=== PATIENT | female | born 1980 | race Caucasian/White ===

== ENCOUNTER 2016-04-29 07:36 | Day surgery (SDC) | payer MEDICARE, MEDICAID ==
[~2016-04-29] VITALS: Ht 165.1 cm; Wt 120.2 kg
[~2016-04-29 07:36] MED LIST: 0.9% Sodium Chloride 1,000 ML IV SCH; ESOM40CA41 PO; MEDR150D9 IM; Sodium Chloride LOK Flush 10 mL Syringe IV PRN; fentaNYL-PF 50 mCg/mL 2 mL Inj IVPUSH PRN
[2016-04-29 07:58] VITALS: BP 133/96; PULSE 82; RESP 16; O2SAT 96
[2016-04-29 08:43] VITALS: BP 146/86; PULSE 72; RESP 12; O2SAT 94
[2016-04-29 08:51] VITALS: BP 144/87; PULSE 73; RESP 16; O2SAT 95
[2016-04-29 09:01] VITALS: BP 146/90; PULSE 74; RESP 16; O2SAT 96
--- NOTE | 2016-04-29 09:08 | ENDO ---
[address] [address] ENDOSCOPY PROCEDURE PATIENT: LILY NUNES : 1980 MR#: [id number] ADMIT: 04/29/2016 JOB ID: [id number] DATE: 04/29/2016 PROCEDURE: Esophagogastroduodenoscopy. INDICATION: Gastroesophageal reflux. The patient's ASA classification is 2. Mallampati score is 2. MEDICATIONS: 1. Versed 5 mg. 2. Fentanyl 100 mcg. INSTRUMENT USED: GIF H 190 J. PROCEDURE DETAILS: After informed consent was obtained, the patient was brought into the GI suite, where she was placed on oxygen via nasal cannula and monitored with continuous pulse oximeter, telemetry and blood pressure monitoring. A time-out was performed. Then, she was placed in the left lateral decubitus position. A bite block was placed. Medications were then administered for sedation. The standard EGD scope was inserted through the bite block and advanced under direct visualization to the second portion of the duodenum without difficulty. FINDINGS: 1. Normal appearing duodenal bulb, first and second portion. 2. Normal appearing pylorus. In the antrum and body of the stomach, there was moderate erythema suggestive of gastritis. Multiple random biopsies were obtained. 3. Retroflexed views in the gastric body revealed a normal appearing cardia and fundus. No hiatal hernia was appreciated. 4. The GE junction was at approximately 39 cm and was slightly irregular. There were two short tongues of salmon-colored mucosa arising from the GE junction. Multiple biopsies were obtained. The remainder of the esophagus was otherwise unremarkable. IMPRESSION: 1. Gastritis. 2. Slightly irregular gastroesophageal junction. RECOMMENDATIONS: 1. Await biopsy results. 2. Continue PPI daily. 3. Smoking cessation. 4. Weight loss encouraged. 5. Follow up in GI clinic. COMPLICATIONS: None. ESTIMATED BLOOD LOSS: Less than 5 mL.
[2016-04-29 09:15] VITALS: BP 147/95; PULSE 76; RESP 17; O2SAT 96
--- NOTE | 2016-04-30 15:25 | PATH ---
SURGICAL PATHOLOGY Attending Physician:Mary Ellen Churchill CASE STATUS: Signed Out PATIENT NAME: LILY NUNES PID: [id number] : 1980 DATE COLLECTED:04/29/2016 19:05 SPECIMEN: 1: Gastric, Biopsy 2: Esophagus, Biopsy CLINICAL HISTORY: 1: RANDOM GASTRIC BIOPSY 2: DISTAL ESOPHAGEAL BIOPSY FINAL DIAGNOSIS: 1. Random Gastric Biopsy: Gastric body and antral mucosa with no diagnostic alterations. Negative for Helicobacter organisms. Negative for intestinal metaplasia. Negative for dysplasia and malignancy. 2. Distal Esophagus, Biopsy: Squamocolumnar mucosa with reactive changes consistent with reflux. Negative for intestinal metaplasia. Negative for dysplasia and malignancy. ICD10 K21.0 GROSS DESCRIPTION: The specimen is received in two formalin filled containers labeled with the patient's name. 1). The specimen is sublabeled "random gastric" and consists of multiple portions of tissue which aggregate to 0.7 x 0.5 x 0.3 CM. The specimen is entirely submitted in cassette 1A. 2). The specimen is sublabeled "distal esophageal" and consists of 4 portions of tissue which aggregate to 0.3 x 0.3 x 0.2 CM. The specimen is entirely submitted in cassette 2A. 04/29/2016 [facility] MICRO DESCRIPTION: Please see diagnosis. ICD-9 CODES: CPT CODES: 1: 73885 2: 68317 Electronically Signed Out Laquita Ann MD [facility] Pathology [facility], [place] [address] Technical component performed at [facility], [address] [place] [address] Ave[address], [place], [address]
== END 2016-04-29 23:59 | disposition home or self-care (01) ==
LOC: END 07:36
PROVIDERS: ATTEND Internal Medicine Gastroenterology
DX: K29.70 Gastritis, unspecified, without bleeding (principal); K21.9 Gastro-esophageal reflux disease without esophagitis; F31.9 Bipolar disorder, unspecified; F43.10 Post-traumatic stress disorder, unspecified; F17.210 Nicotine dependence, cigarettes, uncomplicated; E66.9 Obesity, unspecified; Z68.42 Body mass index [BMI] 45.0-49.9, adult
CPT/HCPCS: 43239; 88305; G0500; J2250; J3010; J7030